=== PATIENT | female | born 1980 | race Caucasian/White ===

== ENCOUNTER → 2018-10-10 | Outpatient (CLI) | payer BC ==
--- NOTE | 2018-10-11 12:02 | MM ---
Reason for exam: clinical finding. Last mammogram was performed 4 years and 11 months ago. History: Patient is nulliparous. Physical Findings: Nurse did not find any significant physical abnormalities on exam. MG 3D Diag Mammo W/Cad ROB Bilateral CC and MLO view(s) were taken. Prior study comparison: November 20, 2013, mammogram, performed at [facility]. March 27, 2013, mammogram, performed at [facility]. The breast tissue is heterogeneously dense. This may lower the sensitivity of mammography. There is chronic nodularity in the left upper outer quadrant. 8mm circumscribed nodule laterally right breast appears new. These results were verbally communicated on 10/11/18. ASSESSMENT: Incomplete: need additional imaging evaluation, BI-RAD 0 RECOMMENDATION: Ultrasound of both breasts. (right lateral, left upper outer quadrant and 6 o'clock)
--- NOTE | 2018-10-11 12:06 | USB ---
Reason for exam: clinical finding. History: Patient is nulliparous. US Breast Limited LT Left limited breast ultrasound including focal area of concern, retroareolar and axilla demonstrates a 6 x 3 x 4mm cystic cluster at 12 o'clock, a 1.3 x 0.8 x 1.3cm cystic cluster at 1 o'clock and a 0.9 x 0.3 x 0.8cm cystic cluster at 6 o'clock. Multiple cystic areas visualized. Scanned 12-6 o'clock. These findings are benign. A benign exam should not preclude additional follow up of suspicious palpable abnormalities. These results were verbally communicated with the patient on 10/11/18. ASSESSMENT: Incomplete: need additional imaging evaluation, BI-RAD 0 RECOMMENDATION: Ultrasound. (right lateral half) [facility] will attempt to contact patient to return for ultrasound.
== END | disposition home or self-care (01) ==
LOC: RADMAMWWP 07:01
PROVIDERS: ATTEND Obstetrics & Gynecology
DX: N63.0 Unspecified lump in unspecified breast (principal)
CPT/HCPCS: 77062; 77066

== ENCOUNTER → 2018-10-25 | Outpatient (CLI) | payer BC ==
--- NOTE | 2018-10-26 08:24 | USB ---
Reason for exam: additional evaluation requested from abnormal screening. History: Patient is nulliparous. US Breast Workup Limited RT Right limited breast ultrasound including focal area of concern, retroareolar and axilla demonstrates a 0.5 x 0.5 x 0.6cm cystic cluster at 10 o'clock, a 0.4 x 0.4 x 0.5cm oval, cystic lesion at 9 o'clock and a 0.7 x 0.3 x 0.7cm cystic cluster at 9 o'clock. Overall fibrocystic change correlates with mammogram. These results were verbally communicated with the patient and result sheet given to the patient on 10/25/18. ASSESSMENT: Benign, BI-RAD 2 RECOMMENDATION: Routine screening mammogram of both breasts at age 41.
== END | disposition home or self-care (01) ==
LOC: RADUSWWP 15:25
PROVIDERS: ATTEND Obstetrics & Gynecology
DX: R92.8 Other abnormal and inconclusive findings on diagnostic imaging of breast (principal)

== ENCOUNTER → 2020-07-04 | Outpatient (CLI) | payer BC ==
--- NOTE | 2020-07-04 12:17 | ECHOF ---
Referral Reason:R00.0 tacycardia, I49.9 Cardiac arrhythmia, unspec MEASUREMENTS -------- HEIGHT: 154.9 cm WEIGHT: 60.3 kg BP: RVIDd: 2.6 cm (< 3.3) IVSd: 0.9 cm (0.6 - 1.1) LVIDd: 4.0 cm (3.9 - 5.3) LVPWd: 0.9 cm (0.6 - 1.1) IVSs: 1.4 cm LVIDs: 2.4 cm LVPWs: 1.6 cm LAESV Index (A-L): 15.61 ml/m Ao Diam: 2.4 cm (2.0 - 3.7) AV Cusp: 2.1 cm (1.5 - 2.6) LA Diam: 2.8 cm (2.7 - 3.8) MV EXCURSION: 14.577 mm (> 18.000) MV EF SLOPE: 127 mm/s (70 - 150) EPSS: 0.8 cm MV E Sanchez: 0.56 m/s MV DecT: 122 ms MV A Sanchez: 0.45 m/s MV E/A Ratio: 1.25 RAP: 5.00 mmHg RVSP: 7.95 mmHg FINDINGS -------- This was a technically good study. The left ventricular size is normal. Left ventricular wall thickness is normal. Overall left vent ricular systolic function is normal with, an EF between 55 - 60 %. The diastolic filling pattern is normal for the age of the patient 7.52. The right ventricle is normal in size. The left atrial size is normal. The right atrial size is normal. The aortic valve is trileaflet and appears structurally normal. The mitral valve is normal. There is trace mitral regurgitation. Cannot exclude mitral valve prol apse. The tricuspid valve appears structurally normal. Trace tricuspid regurgitation present. Right yash tricular systolic pressure is normal at < 35 mmHg. There is no pulmonic regurgitation present. The aortic root size is normal. Normal inferior vena cava with normal inspiratory collapse consistent with estimated right atrial pre ssure of 5 mmHg. There is no pericardial effusion. CONCLUSIONS -------- 1. The left ventricular size is normal. 2. Left ventricular wall thickness is normal. 3. Overall left ventricular systolic function is normal with, an EF between 55 - 60 %. 4. The diastolic filling pattern is normal for the age of the patient 7.52 5. There is trace mitral regurgitation. 6. Cannot exclude mitral valve prolapse. 7. Trace tricuspid regurgitation present. 8. There is no pericardial effusion. NEUROLOGY EPILEPSY PHYSICIAN: Twila Ronquillo RDCS
--- NOTE | 2020-07-04 12:59 | EST ---
EXERCISE STRESS AGE: 39 SEX: F HT: 60 WT: 132 PROTOCOL: Torin Stress Test STAGE: 4 DURATION OF EXERCISE: 9:30 HEART RATE REST: 87 BLOOD PRESSURE REST: 112/60 MAXIMUM HEART RATE ACHIEVED: 160 MAXIMUM BLOOD PRESSURE: 141/53 85% MPHR: 155 100% MPHR: 182 METS: 11.1 INDICATIONS: Chest pain. CLINICAL INFORMATION: Baseline EKG revealed normal sinus rhythm without significant ST changes. Patient walked on a standard Torin protocol for 9 minutes 30 seconds, achieved a maximal heart rate of 160 beats per minute, developed fatigue, shortness of breath, but did not have any angina or arrhythmia. EKG did not reveal any ST-segment changes to indicate ischemia. This is a negative stress test without evidence of ischemia. IMPRESSION: 1. Fair exercise capacity. 2. Negative stress test by EKG criteria. No evidence of ischemia, angina or arrhythmia. MMNATHANL / IJN: [id number] /
--- NOTE | 2020-07-10 12:02 | P.HOLTER ---
Diagnosis Palpitations 24-hour Holter monitor shows Sinus rhythm Sinus tachycardia Occasional premature beats No sustained or nonsustained arrhythmias
--- NOTE | 2020-07-11 08:32 | HM ---
Diagnosis Palpitations 24-hour Holter monitor shows Sinus rhythm Sinus tachycardia Occasional premature beats No sustained or nonsustained arrhythmias MTDD
== END | disposition home or self-care (01) ==
LOC: RADNMMAIN 10:21
PROVIDERS: ATTEND Family Medicine
DX: R00.0 Tachycardia, unspecified (principal); I49.9 Cardiac arrhythmia, unspecified; Z88.0 Allergy status to penicillin
CPT/HCPCS: 93017; 93225; 93226; 93306

== ENCOUNTER → 2022-03-11 | Outpatient (CLI) | payer BC ==
--- NOTE | 2022-03-13 07:36 | MM ---
Reason for Exam: Screening (asymptomatic). Last mammogram was performed 3 year(s) and 5 month(s) ago. Patient History: Menarche at age 15. Patient has no children. Risk Values: Erum 5 year model risk: 0.6%. NCI Lifetime model risk: 10.2%. Prior Study Comparison: 03/27/2013 Screening Mammogram, [facility]. 11/20/2013 Screening Mammogram, [facility]. 10/10/2018 Bilateral Diagnostic Mammogram, [facility]. Tissue Density: The breast tissue is heterogeneously dense. This may lower the sensitivity of mammography. Findings: Analyzed By CAD. Asymmetry demonstrated within the medial breast only on the CC view with new microcalcifications. Overall Assessment: Incomplete: need additional imaging evaluation, BI-RAD 0 Management: Special View Mammogram of the left breast. A clinical breast exam by your physician is recommended on an annual basis and results should be correlated with mammographic findings. Electronically signed and approved by: Pk Willett D.O.
== END | disposition home or self-care (01) ==
LOC: RADMAMWWP 14:51
PROVIDERS: ATTEND Family Medicine
DX: Z12.31 Encounter for screening mammogram for malignant neoplasm of breast (principal)
CPT/HCPCS: 77063; 77067

== ENCOUNTER → 2022-03-16 | Outpatient (CLI) | payer BC ==
--- NOTE | 2022-03-16 09:54 | MM ---
Reason for Exam: Additional evaluation requested from abnormal screening. Last screening mammogram was performed less than 1 month ago. Indicated Problems: Pain of the left side (Focal) for 6 Month(s) : between 3-6 oclock. Patient History: Menarche at age 15. Patient has no children. Last menstrual period: 02/26/2022 Risk Values: Erum 5 year model risk: 0.6%. NCI Lifetime model risk: 10.2%. Prior Study Comparison: 11/20/2013 Screening Mammogram, [facility]. 10/10/2018 Bilateral Diagnostic Mammogram, [facility]. 03/11/2022 Bilateral MG 3D screening mammo w/cad, [facility]. Tissue Density: Left: The breast tissue is heterogeneously dense. This may lower the sensitivity of mammography. Findings: Analyzed By CAD. Indeterminate microcalcifications lower inner left breast. Stereotactic core biopsy recommended. Overall Assessment: Suspicious, BI-RAD 4 Management: Stereotactic Core Biopsy of the left breast. A clinical breast exam by your physician is recommended on an annual basis and results should be correlated with mammographic findings. This exam should not preclude additional follow-up of suspicious palpable abnormalities. Results were given to the patient verbally at the time of exam. Electronically signed and approved by: João Alvarez M.D. Radiologis
== END | disposition home or self-care (01) ==
LOC: RADMAMWWP 08:41
PROVIDERS: ATTEND Family Medicine
DX: R92.8 Other abnormal and inconclusive findings on diagnostic imaging of breast (principal)
CPT/HCPCS: 77061; 77065

== ENCOUNTER → 2022-03-30 | Day surgery (SDC) | payer BC ==
[2022-03-30 08:18] VITALS: RESP 12; TEMP 98.4
[2022-03-30 09:25] VITALS: BP 126/86; PULSE 86
--- NOTE | 2022-04-06 12:13 | MM ---
Risk Values: Erum 5 year model risk: 0.6%. NCI Lifetime model risk: 10.2%. Prior Study Comparison: 10/10/2018 Bilateral Diagnostic Mammogram, [facility]. 03/11/2022 Bilateral MG 3D screening mammo w/cad, [facility]. 03/16/2022 Left MG 3D work up w/cad , [facility]. Pathology Description: Location: lower inner quadrant, middle. Marker Left Behind. Specimen Radiograph. Calcium Found: Yes Approach: CC FB Needle Type: Eviva Cores: 4 Skin Nicks: 1 Gauge: 9 The procedure of stereotactic guided core biopsy was explained to the patient. Benefits, alternatives, and risks were discussed. An informed consent was then obtained. Both medial and inferior approaches were possible. Due to technical factors, inferior approach was utilized. I performed the localization followed by the remainder of the procedure. A vacuum assisted biopsy gun was used to obtain 4 core samples. The patient tolerated the procedure well without any immediate complication. The patient was kept in the radiology department for short stay after the procedure and then discharged home in stable condition. Targeted calcifications are identified in specimen mammogram. Post biopsy mammogram shows minimal 5 mm superior clip migration relative to the targeted area of concern on the preprocedure images. Impression: SUCCESSFUL, UNCOMPLICATED STEREOTACTIC GUIDED CORE BIOPSY OF 8:00 RIGHT BREAST MICROCALCIFICATIONS. MINIMAL 5 MM SUPERIOR MIGRATION. Pathology Results: Result: Benign, Fibrocystic change. LEFT BREAST, STEREOTACTIC CORE BIOPSY: Fibrocystic changes including cysts, fibrosis, apocrine metaplasia, mild usual type ductal hyperplasia and columnar cell change/columnar cell hyperplasia. Intraluminal calcium oxalate crystals are identified. Overall Assessment: Benign Management: Diagnostic Mammogram of the left breast in 6 months. Electronically signed and approved by: Miguel A Trujillo M.D. Radiologist
== END ==
LOC: RADMAMWWP 08:06
PROVIDERS: ATTEND Surgery
DX: N60.02 Solitary cyst of left breast (principal); N60.32 Fibrosclerosis of left breast; N60.82 Other benign mammary dysplasias of left breast; N62 Hypertrophy of breast; Z88.0 Allergy status to penicillin
CPT/HCPCS: 88305; 19081; A4648; J2001

== ENCOUNTER → 2022-11-16 | Outpatient (CLI) | payer BC ==
--- NOTE | 2022-11-17 17:36 | MM ---
Reason for Exam: Screening (asymptomatic). Last screening mammogram was performed 8 month(s) ago. Patient History: Menarche at age 15. Patient has no children. 03/30/2022, Benign MG stereo VAD BX LT on the left side. Last menstrual period: 11/13/2022 Risk Values: Erum 5 year model risk: 1.0%. NCI Lifetime model risk: 12.2%. Prior Study Comparison: 10/10/2018 Bilateral Diagnostic Mammogram, [facility]. 03/11/2022 Bilateral MG 3D screening mammo w/cad, [facility]. 03/16/2022 Left MG 3D work up w/cad LT, [facility]. Tissue Density: The breast tissue is extremely dense which could obscure a lesion on mammography. Findings: Analyzed By CAD. Pattern appears symmetrical and stable. There is a stable obscured rounded area measuring 1.5 cm upper outer quadrant 4 cm from the nipple, present previously. No suspicious groups of microcalcifications, spiculated or lobular masses, architectural distortion or other secondary signs of malignancy are mammographically apparent. Overall Assessment: Benign, BI-RAD 2 Management: Screening Mammogram of both breasts in 1 year. A negative mammogram report should not preclude additional follow up of suspicious palpable abnormalities. Patient should continue monthly self breast exam. A clinical breast exam by your physician is recommended on an annual basis and results should be correlated with mammographic findings. Electronically signed and approved by: Aly Poole D.O. Radiologis
== END | disposition home or self-care (01) ==
LOC: RADMAMWWP 15:49
PROVIDERS: ATTEND Family Medicine
DX: Z12.31 Encounter for screening mammogram for malignant neoplasm of breast (principal); Z98.890 Other specified postprocedural states
CPT/HCPCS: 77063; 77067

== ENCOUNTER → 2024-01-10 | Outpatient (CLI) | payer BC ==
--- NOTE | 2024-01-10 19:13 | MM ---
Reason for Exam: Screening (asymptomatic). Last mammogram was performed 1 year(s) and 2 month(s) ago. Patient History: Menarche at age 15. Patient has no children. 03/30/2022, Benign MG stereo VAD BX LT on the left side. Last menstrual period: 01/09/2024 Risk Values: Erum 5 year model risk: 1.1%. NCI Lifetime model risk: 12.1%. Prior Study Comparison: 03/11/2022 Bilateral MG 3D screening mammo w/cad, [facility]. 03/16/2022 Left MG 3D work up w/cad LT, [facility]. 11/16/2022 Bilateral MG 3D screening mammo w/cad, [facility]. Tissue Density: The breasts are heterogeneously dense, which may obscure small masses. Findings: Analyzed By CAD. A new 1.4 cm nodule 9:00 anterior right breast for which further ultrasound evaluation is recommended. Regional calcifications medial posterior left breast with microclip related to prior biopsy. Chronic nodularity lateral left breast. Otherwise, areas of asymmetric density remain unchanged. Overall Assessment: Incomplete: need additional imaging evaluation, BI-RAD 0 Management: Diagnostic Breast Ultrasound of the right breast. Lateral half, particular attention to the 9:00 position for a 1.4 cm nodule/cyst. [facility] will attempt to contact patient to return for supplemental views and ultrasound if indicated. Electronically signed and approved by: Miguel A Trujillo M.D. Radiologist
== END | disposition home or self-care (01) ==
LOC: RADMAMWWP 07:28
PROVIDERS: ATTEND Family Medicine
DX: Z12.31 Encounter for screening mammogram for malignant neoplasm of breast (principal)
CPT/HCPCS: 77063; 77067

== ENCOUNTER → 2024-01-12 | Outpatient (CLI) | payer BC ==
--- NOTE | 2024-01-12 14:58 | USB ---
Reason for Exam: Additional evaluation requested from abnormal screening. Patient History: Menarche at age 15. Patient has no children. 03/30/2022, Benign MG stereo VAD BX LT on the left side. Risk Values: Erum 5 year model risk: 1.1%. NCI Lifetime model risk: 12.1%. Technique: Method: Targeted. Prior Study Comparison: 03/16/2022 Left MG 3D work up w/cad LT, [facility]. 11/16/2022 Bilateral MG 3D screening mammo w/cad, [facility]. 01/10/2024 Bilateral MG 3D screening mammo w/cad, [facility]. Findings: The upper outer quadrant of the right breast, the axilla of the right breast and the retroareolar of the right breast were scanned. Targeted ultrasound right breast upper-outer quadrant 1:00 11:00 including scanning of the subareolar region and axilla. * At the 11:00 position, 3 cm from the nipple, there is a lobulated but otherwise simple cyst measuring 1.5 x 1.4 x 0.9 cm. Probable mammographic correlate. * Smaller benign cyst at 11:00, 5 cm from the nipple measuring 7 mm. * No other solid or cystic lesion or axillary lymphadenopathy. Dense tissue is present throughout. Overall Assessment: Probably benign, BI-RAD 3 Management: Diagnostic Mammogram of the right breast in 6 months. A clinical breast exam by your physician is recommended on an annual basis and results should be correlated with mammographic findings. This exam should not preclude additional follow-up of suspicious palpable abnormalities. Results were given to the patient verbally at the time of exam. Electronically signed and approved by: Miguel A Trujillo M.D. Radiologist
== END | disposition home or self-care (01) ==
LOC: RADUSWWP 13:57
PROVIDERS: ATTEND Family Medicine
DX: R92.8 Other abnormal and inconclusive findings on diagnostic imaging of breast (principal)